=== PATIENT | female | born 1990 | race Asian ===

== ENCOUNTER 2020-07-24 06:36 | Emergency (ER) | payer OTHER ==
[~2020-07-24] VITALS: Ht 157.5 cm; Wt 43.6 kg
--- NOTE | 2020-07-24 07:26 | NUR ---
PT AMBULATORY TO ROOM 17 W/ C/O LOWER PELVIC PAIN. PT STATES SHE HAD MILKY DISCHARGE IN NOVEMBER AND WAS PROVIDED W/ ABX BY HER OBGYN AND IT WENT AWAY BUT CAME BACK IN FEBRUARY. PT ALSO STATES SHE WAS DX W/ HPV AT PRIOR PAP SMEAR. PT STATES SHE HAD UNPROTECTED SEX 3 MONTHS AGO. LMP 07/11/2020. PT RESTING ON PELVIC GURNEY. NADN. MONITORS APPLIED. VSS. WARM BLANKET PROVIDED.
[2020-07-24 07:53] LABS: MICROSCOPIC NOT IND
[2020-07-24 08:44] LABS: BASOPHILS % (AUTO) 1 % (0-1); EOSINOPHILS % (AUTO) 1 % (1-7); LYMPHOCYTES % (AUTO) 29 % (22-44); MEAN CORPUSCULAR HEMOGLOBIN 28.6 pg (27.0-34.8); MEAN CORPUSCULAR HGB CONC 32.6 g/dL (32.4-35.8); MEAN PLATELET VOLUME 8.6 fL (7.4-10.4); MONOCYTES % (AUTO) 7 % (2-9); NEUTROPHILS % (AUTO) 63 % (42-75); PLATELET COUNT 245 x10^3/uL (130-400); RED CELL DISTRIBUTION WIDTH 12.6 % (9.6-15.2)
[2020-07-24 08:49] LABS: MD NO
--- NOTE | 2020-07-24 08:49 | NUR ---
PT RESTING ON OLIVE VIEW-[facility]. RICCI. VSS. PELVIC COMPLETED. TESTS WALKED DOWN TO LAB BY THIS RN.
[2020-07-24 09:17] LABS: CLUE CELLS NONE SEEN (NONE SEEN); WET PREP WBCS NONE SEEN (FEW)
[2020-07-24] MEDS ORDERED: KETOROLAC 30 MG/1 ML ONE (09:18)
[2020-07-24] MEDS ORDERED: KETOROLAC 30 MG/1 ML IM ONE (09:30)
[2020-07-24 10:01] VITALS: BP 101/63
== END 2020-07-24 10:10 | disposition home or self-care (01) ==
LOC: ED 07:46
DX: N76.0 Acute vaginitis (principal); R10.2 Pelvic and perineal pain
CPT/HCPCS: 36415; 76830; 81003; 84703; 85025; 87210; 87491; 87591; 87808; 96372; 99284; J1885